=== PATIENT | female | born 2000 | race Caucasian/White ===

== ENCOUNTER 2021-08-19 18:34 | Emergency (ER) | payer OTHER ==
[~2021-08-19] VITALS: Ht 160 cm; Wt 68.0 kg
[2021-08-20] MEDS ORDERED: KETO10TA2 PO (01:51)
== END 2021-08-20 02:02 | disposition home or self-care (01) ==
LOC: ER 18:34 → EMR PED 18:38 → ER 18:38
DX: R10.84 Generalized abdominal pain (principal); R10.2 Pelvic and perineal pain; Z03.818 Encounter for observation for suspected exposure to other biological agents ruled out